=== PATIENT | female | born 1945 | race Caucasian/White ===

== ENCOUNTER 2017-10-07 08:55 | Outpatient (CLI) | payer MEDICARE ==
--- NOTE | 2017-10-07 11:40 | CT ---
CT ARTERIOGRAM NECK WITH IV CONTRAST AND 3D MIP IMAGING: History: Vascular disease. Stenosis. Abnormal screening sonogram. FINDINGS: There is normal branches of the vessels from the aortic arch with moderate degree of arterial calcifi cation. The common carotid arteries and vertebral arteries are patent. At the right carotid bifurcation there is calcified and noncalcified plaque with approximately 30% st enosis of the proximal ICA. On the left, there is calcified and noncalcified plaque with a stenosis over a length of 1.2 cm withi n the proximal to mid ICA with stenosis up to 85%. Blood flow is demonstrated more distally. Each external carotid artery is patent. IMPRESSION: Atherosclerosis with high grade stenosis in the proximal to mid left internal carotid artery as eyad led above. POS: CURTIS
[2017-10-07] MEDS ORDERED: Iopamidol 370 76% 100 ML VIAL ONE (11:46)
== END 2017-10-07 08:56 | disposition home or self-care (01) ==
LOC: CT 08:55
PROVIDERS: ATTEND Thoracic Surgery (Cardiothoracic Vascular Surgery)
DX: I65.8 Occlusion and stenosis of other precerebral arteries (principal); I65.22 Occlusion and stenosis of left carotid artery
CPT/HCPCS: 70498